=== PATIENT | female | born 1975 | race Caucasian/White ===

== ENCOUNTER 2016-09-20 11:38 | Emergency (ER) | payer MEDICAID ==
[~2016-09-20] VITALS: Ht 175.3 cm; Wt 80.5 kg
[~2016-09-20 11:38] MED LIST: FLEXERIL 1010 MG/TAB PO; LEXAPRO 5MG5 MG PO; LEXAPRO20 MG PO; NEXIUM 40MG40 MG PO; NORCO 325 MG-51 TAB PO; NORCO 325 MG-7.1 TAB PO; PHENERGAN 25 TA25 MG PO; PROTONIX 40MG T40 MG PO; PROVERA 10MG10 MG PO; TYLENOL 500MG500 MG PO; TYLENOL/CODEINE1 ML PO; ULTRAM 50MG TAB50 MG PO; XANAX 1MG1 MG PO; ZITHROMAX 250M250 MG PO; ZOFRAN 4MG T4 MG/TAB PO
[2016-09-20 11:43] VITALS: BP 123/71; PULSE 116; TEMP 98.5
== END 2016-09-20 12:34 | disposition home or self-care (01) ==
LOC: COL.ER 11:38
DX: S70.11XA Contusion of right thigh, initial encounter (principal); W18.30XA Fall on same level, unspecified, initial encounter

== ENCOUNTER 2016-10-24 10:34 | Day surgery (SDC) | payer MEDICAID ==
[~2016-10-24] VITALS: Ht 175.3 cm; Wt 78.6 kg
[2016-10-24] VITALS (7 sets, daily range): BP systolic 101–122; BP diastolic 57–78; PULSE 76–94; TEMP 97.7–97.8
[2016-10-24] MEDS ORDERED: TYLENOL 500MG500 MG PO (11:50)
[2016-10-24] MEDS ORDERED: TYLENOL W/COD1 UDTAB PO (11:50)
[2016-10-24] MEDS ORDERED: MOTRIN 800800 MG/TAB PO (12:18)
[2016-10-24] MEDS ORDERED: PERCOCET 325 MG1 TA2 PO (12:18)
== END 2016-10-24 19:45 | disposition home or self-care (01) ==
LOC: SDCO 10:34 → SURG 15:25 → SDCO 19:45
DX: D06.0 Carcinoma in situ of endocervix (principal); N92.1 Excessive and frequent menstruation with irregular cycle; N83.8 Other noninflammatory disorders of ovary, fallopian tube and broad ligament; N73.6 Female pelvic peritoneal adhesions (postinfective); D64.9 Anemia, unspecified; F17.210 Nicotine dependence, cigarettes, uncomplicated
CPT/HCPCS: OP; A9284; J0690; J1200; J2270; J2405; J2704; J3010; J7120

== ENCOUNTER → 2016-10-26 | Outpatient (CLI) | payer MEDICAID ==
[~2016-10-26] MED LIST changes: +MOTRIN 800800 MG/TAB PO; +PERCOCET 325 MG1 TA2 PO; +TYLENOL W/COD1 UDTAB PO
== END ==
LOC: COL.RAD 14:50
DX: R10.84 Generalized abdominal pain (principal); Z98.890 Other specified postprocedural states; Z90.710 Acquired absence of both cervix and uterus

== ENCOUNTER 2016-10-28 16:56 | Emergency (ER) | payer MEDICAID ==
[~2016-10-28] VITALS: Ht 175.3 cm; Wt 75.0 kg
[2016-10-28 16:59] VITALS: TEMP 98.2
[2016-10-28] MEDS ORDERED: NORCO 325 MG-51 TAB PO ×2 (17:02→18:55)
[2016-10-28 18:07] LABS: BASO % 0.4 % (0.0-2.0); EOS # 0.3 (0.0-0.7); EOS % 4.7 % (0-4.0); GRAN # 3.8 (1.4-6.5); GRAN % 51.2 % (42.2-75.2); LYMPH # 2.7 (1.2-3.4); LYMPH % 36.4 % (20.0-51.0); MEAN CELL VOLUME 83 fl (80.0-100.0); MEAN CORPUSCULAR HGB CONC 32 g/dl (33.0-37.0); MEAN PLATELET VOLUME 10.3 fl (7.4-10.4); MONO # 0.5 (0.1-0.6); PLATELET COUNT 371 K/mm3 (130-400); RED BLOOD COUNT 3.78 M/mm3 (4.10-5.30); REDCELL DISTRIBUTION WIDTH-CV 15.9 % (11.5-14.5); WHITE BLOOD COUNT 7.3 K/mm3 (4.8-10.8)
[2016-10-28 18:14] LABS: HEMATOCRIT 31.2 % (37.0-47.0); MEAN CORPUSCULAR HEMOGLOBIN 26 pg (27.0-31.0)
[2016-10-28 18:20] LABS: URINE APPEARANCE Hazy; URINE COLOR Yellow
[2016-10-28 18:21] LABS: PH 7 (5-8); URINE BILIRUBIN Negative (NEGATIVE); URINE BLOOD 2+ (NEGATIVE); URINE GLUCOSE Negative (NEGATIVE); URINE KETONE Negative (NEGATIVE); URINE RBC 0-2 /hpf; URINE UROBILINOGEN Negative (NEGATIVE)
[2016-10-28 18:22] LABS: ADJUSTED CALCIUM 9.3 mg/dL (8.4-10.2); ALBUMIN 3.8 gm/dL (3.5-5.0); BILIRUBIN,TOTAL 0.5 mg/dL (0.0-1.0); CALCIUM 9.1 mg/dL (8.4-10.2); CREATININE, serum 0.73 mg/dL (0.52-1.25); POTASSIUM 3.5 mmol/L (3.4-5.0); SQUAMOUS EPITHELIAL 20-50 /hpf; TOTAL PROTEIN 6.4 gm/dL (6.4-8.2)
[2016-10-28 19:13] VITALS: BP 109/69; PULSE 80
== END 2016-10-28 19:13 | disposition home or self-care (01) ==
LOC: COL.ER 16:56
PROVIDERS: Emergency Medicine
DX: R10.84 Generalized abdominal pain (principal); Z98.890 Other specified postprocedural states; Z90.710 Acquired absence of both cervix and uterus
CPT/HCPCS: J1170; J2405; J7030

== ENCOUNTER 2017-10-13 13:16 | Emergency (ER) | payer MEDICAID ==
[~2017-10-13] VITALS: Ht 175.3 cm; Wt 62.7 kg
[2017-10-13 13:28] VITALS: BP 118/56; PULSE 96; TEMP 98.1
[2017-10-13] MEDS ORDERED: AMOXICILLIN 50500 MG PO (13:51)
== END 2017-10-13 14:14 | disposition home or self-care (01) ==
LOC: COL.ER 13:16
DX: K02.9 Dental caries, unspecified (principal); F41.9 Anxiety disorder, unspecified; F17.210 Nicotine dependence, cigarettes, uncomplicated

== ENCOUNTER 2018-01-17 02:38 | Emergency (ER) | payer MEDICAID ==
[~2018-01-17] VITALS: Ht 175.3 cm; Wt 61.4 kg
[~2018-01-17 02:38] MED LIST changes: +AMOXICILLIN 50500 MG PO
[2018-01-17 02:41] VITALS: TEMP 97.5
[2018-01-17 03:12] LABS: BASO % 0.5 % (0.0-2.0); EOS # 0.1 (0.0-0.7); EOS % 1.1 % (0-4.0); GRAN # 4.4 (1.4-6.5); GRAN % 55.2 % (42.2-75.2); HEMOGLOBIN 13.5 g/dl (12.5-16.0); LYMPH # 2.7 (1.2-3.4); LYMPH % 33.8 % (20.0-51.0); MEAN CELL VOLUME 91 fl (80.0-100.0); MEAN CORPUSCULAR HEMOGLOBIN 31 pg (27.0-31.0); MEAN CORPUSCULAR HGB CONC 34 g/dl (33.0-37.0); MEAN PLATELET VOLUME 9.8 fl (7.4-10.4); MONO # 0.7 (0.1-0.6); MONO % 9.2 % (1.7-9.3); PLATELET COUNT 280 K/mm3 (130-400); REDCELL DISTRIBUTION WIDTH-CV 12.6 % (11.5-14.5)
[2018-01-17 03:24] LABS: COLLECTION METHOD CLEAN CATCH
[2018-01-17 03:27] LABS: ACETAMINOPHEN < 10 ug/mL (10-30); ALANINE AMINOTRANSFERASE 28 U/L (9-52); ALBUMIN 3.7 gm/dL (3.5-5.0); ALCOHOL(ethanol),MEDICAL < 10 mg/dL; ALKALINE PHOSPHATASE 58 U/L (50-136); ANION GAP 9 mmol/L (7-16); AST,SGOT 20 U/L (15-37); BILIRUBIN,TOTAL 0.4 mg/dL (0.0-1.0); BLOOD UREA NITROGEN 7 mg/dL (7-17); C-REACTIVE PROTEIN < 0.5 mg/dL (0.0-0.9); CALCIUM 9.5 mg/dL (8.4-10.2); CARBON DIOXIDE 27 mmol/L (22-30); CHLORIDE 102 mmol/L (98-107); CREATININE, serum 0.81 mg/dL (0.52-1.25); GLUCOSE 85 mg/dL (74-106); POTASSIUM 3.2 mmol/L (3.4-5.0); SALICYLATE < 1.0 mg/dL; SODIUM 139 mmol/L (137-145); TOTAL PROTEIN 6.6 gm/dL (6.4-8.2)
[2018-01-17 03:31] LABS: AMORPHOUS CRYSTAL Present /uL; BUDDING YEAST Present /hpf; MUCOUS Present /lpf; PH 7 (5-8); URINE APPEARANCE Cloudy; URINE BACTERIA None Seen /hpf; URINE BILIRUBIN Negative (NEGATIVE); URINE BLOOD Negative (NEGATIVE); URINE COLOR Yellow; URINE GLUCOSE Negative (NEGATIVE); URINE KETONE Negative (NEGATIVE); URINE LEUKOCYTE ESTERASE Negative (NEGATIVE); URINE NITRATE Negative (NEGATIVE); URINE PROTEIN(semi-quant) Negative (NEGATIVE); URINE RBC 0-2 /hpf; URINE UROBILINOGEN Negative (NEGATIVE)
[2018-01-17 03:36] LABS: TRICYCLIC ANTIDEPRESS URINE NEGATIVE
[2018-01-17 07:42] VITALS: BP 116/80; PULSE 88
== END 2018-01-17 07:45 | disposition home or self-care (01) ==
LOC: COL.ER 02:38
PROVIDERS: Emergency Medicine
DX: F15.10 Other stimulant abuse, uncomplicated (principal); R41.0 Disorientation, unspecified; Z90.710 Acquired absence of both cervix and uterus
CPT/HCPCS: J7030

== ENCOUNTER 2018-04-09 18:16 | Emergency (ER) | payer MEDICAID ==
[~2018-04-09] VITALS: Ht 175.3 cm; Wt 54.5 kg
[~2018-04-09 18:16] MED LIST changes: +ASPI325T6 PO; +CEPHALEXIN500 M1 PO; +DEPAKOTE500 MG PO; +NICODERM C21 MG/PATC TD; +ROXICODONE 55 MG/TAB PO
[2018-04-09 18:20] VITALS: BP 99/59; TEMP 99.1
[2018-04-09 19:36] LABS: BASO # 0.1 (0.0-0.2); BASO % 0.5 % (0.0-2.0); EOS # 0.2 (0.0-0.7); EOS % 1.9 % (0-4.0); GRAN # 5.7 (1.4-6.5); GRAN % 58.2 % (42.2-75.2); HEMOGLOBIN 10.3 g/dl (12.5-16.0); LYMPH # 2.7 (1.2-3.4); LYMPH % 27.6 % (20.0-51.0); MEAN CELL VOLUME 99 fl (80.0-100.0); MEAN CORPUSCULAR HEMOGLOBIN 32 pg (27.0-31.0); MEAN CORPUSCULAR HGB CONC 32 g/dl (33.0-37.0); MEAN PLATELET VOLUME 9.3 fl (7.4-10.4); MONO % 10.1 % (1.7-9.3); PLATELET COUNT 665 K/mm3 (130-400); RED BLOOD COUNT 3.26 M/mm3 (4.10-5.30); REDCELL DISTRIBUTION WIDTH-CV 15.1 % (11.5-14.5)
[2018-04-09 19:37] LABS: HEMATOCRIT 32.4 % (37.0-47.0)
[2018-04-09 19:46] LABS: COLLECTION METHOD CLEAN CATCH
[2018-04-09 19:54] LABS: ALBUMIN 3.2 gm/dL (3.5-5.0); BILIRUBIN,TOTAL 0.3 mg/dL (0.0-1.0); C-REACTIVE PROTEIN 0.6 mg/dL (0.0-0.9); CALCIUM 8.6 mg/dL (8.4-10.2); CREATININE, serum 0.67 mg/dL (0.52-1.25); TOTAL PROTEIN 6.1 gm/dL (6.4-8.2)
[2018-04-09 19:56] LABS: AMORPHOUS CRYSTAL Present /uL; MUCOUS Present /lpf; PH 7 (5-8); SQUAMOUS EPITHELIAL 0-2 /hpf; URINE APPEARANCE Cloudy; URINE BACTERIA None Seen /hpf; URINE BILIRUBIN Negative (NEGATIVE); URINE BLOOD Negative (NEGATIVE); URINE COLOR Yellow; URINE GLUCOSE Negative (NEGATIVE); URINE KETONE Negative (NEGATIVE); URINE LEUKOCYTE ESTERASE Negative (NEGATIVE); URINE NITRATE Negative (NEGATIVE); URINE PROTEIN(semi-quant) Negative (NEGATIVE); URINE RBC 0-2 /hpf; URINE UROBILINOGEN Negative (NEGATIVE)
[2018-04-09 20:00] LABS: TRICYCLIC ANTIDEPRESS URINE NEGATIVE
[2018-04-09 20:09] LABS: VALPROIC ACID (DEPAKENE) 54.1 ug/mL (50.0-100.0)
[2018-04-09] MEDS ORDERED: DEPAKOTE ER 25250 MG PO (20:39)
[2018-04-09 22:15] VITALS: PULSE 89
== END 2018-04-09 22:00 | disposition home or self-care (01) ==
LOC: COL.ER 18:16
PROVIDERS: Emergency Medicine
DX: G89.18 Other acute postprocedural pain (principal); M25.552 Pain in left hip; G40.909 Epilepsy, unspecified, not intractable, without status epilepticus; F17.210 Nicotine dependence, cigarettes, uncomplicated; Z79.82 Long term (current) use of aspirin
CPT/HCPCS: J1170; J2060; J2405; J7030

== ENCOUNTER 2018-04-12 10:00 | Outpatient (RCR) | payer MEDICAID ==
[~2018-04-12 10:00] MED LIST changes: +DEPAKOTE ER 25250 MG PO
== END 2018-05-31 11:10 | disposition home or self-care (01) ==
LOC: MKS.ESL.PT 10:00
DX: S72.002D Fracture of unspecified part of neck of left femur, subsequent encounter for closed fracture with routine healing (principal); Z96.7 Presence of other bone and tendon implants

== ENCOUNTER → 2018-04-13 | Outpatient (CLI) | payer MEDICAID | LOC: COL.VAS 12:05 | DX: M79.605 Pain in left leg (principal); Z98.890 Other specified postprocedural states ==